=== PATIENT | male | born 1975 | race Caucasian/White ===

== ENCOUNTER → 2021-08-22 | Emergency (ER) | payer MEDICAID ==
[~2021-08-22] VITALS: Ht 175.3 cm; Wt 81.1 kg
[~2021-08-22] MED LIST: CITALOPRAM HBR20 MG PO; DOXYCYCLINE HY100 MG PO
--- OUTSIDE RECORDS SUMMARY | 2021-08-22 11:08 | XMS ---
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 PHONE: Unknown Juni has no Care Guidelines for this patient. E.DLisa VISIT COUNT (12 MO.) 1 Pete Alvarez M[facility] 1 Edwin Lyle [facility] TOTAL 3 NOTE: Visits indicate total known visits. ED/UCC VISIT TRACKING (12 MO.) 08/22/2021 09:35 [facility] [place] TYPE: Emergency COMPLAINT: - POSS PARASITE 06/13/2021 07:33 Pete ALVARE[facility] [place] TYPE: Emergency DIAGNOSES: - Cellulitis of left upper limb - Cellulitis of right lower limb - KNEE AND WRSIT PAIN 06/11/2021 12:27 [facility] [place] TYPE: Emergency INPATIENT VISIT TRACKING (12 MO.) No inpatient visits to display in this time frame [email or web address]
== END ==
LOC: ED 09:33
DX: K62.89 Other specified diseases of anus and rectum (principal); Z88.2 Allergy status to sulfonamides; Z79.899 Other long term (current) drug therapy
CPT/HCPCS: 99283